=== PATIENT | female | born 1955 | race Caucasian/White ===

== ENCOUNTER 2018-08-08 19:05 | Emergency (ER) | payer MEDICARE, OTHER ==
[2018-08-08] MEDS: KETOROLAC 60 MG INJ IM (20:49)
== END 2018-08-08 23:31 | disposition home or self-care (01) ==
LOC: FTE 19:05
DX: M25.561 Pain in right knee (principal); E11.9 Type 2 diabetes mellitus without complications; I10 Essential (primary) hypertension
CPT/HCPCS: 73562; 96372; 99284-25